=== PATIENT | male | born 1945 | race Caucasian/White ===

== ENCOUNTER → 2021-01-03 08:14 | Outpatient (BNVA) | payer MEDICARE, SELFPAY | PROVIDERS: PCP Internal Medicine; Visit Provider Urology | DX: N52.9 Male erectile dysfunction, unspecified (principal); N40.0 Benign prostatic hyperplasia without lower urinary tract symptoms | CPT/HCPCS: 51798; 99212 ==

== ENCOUNTER 2021-12-25 06:59 | Outpatient (REF) | payer MEDICARE, SELFPAY ==
[2021-12-25 08:36] LABS: Prostate Specific Antigen 0.57 ng/mL (<0.05-4.0)
== END 2021-12-25 07:00 | disposition home or self-care (01) ==
LOC: HO.LAB 06:59
PROVIDERS: Visit Provider Urology
DX: N32.0 Bladder-neck obstruction (principal); Z12.5 Encounter for screening for malignant neoplasm of prostate
CPT/HCPCS: 36415; 84153

== ENCOUNTER → 2022-01-01 08:16 | Outpatient (BNVA) | payer MEDICARE, SELFPAY | PROVIDERS: PCP Internal Medicine; Visit Provider Urology | DX: N40.0 Benign prostatic hyperplasia without lower urinary tract symptoms (principal); N52.9 Male erectile dysfunction, unspecified; Z79.899 Other long term (current) drug therapy | CPT/HCPCS: 51798; 99212 ==

== ENCOUNTER → 2022-04-03 11:08 | Outpatient (BNVA) | payer MEDICARE, SELFPAY | PROVIDERS: PCP Internal Medicine; Visit Provider Urology | DX: N52.9 Male erectile dysfunction, unspecified (principal); N40.0 Benign prostatic hyperplasia without lower urinary tract symptoms | CPT/HCPCS: Q3014 ==

== ENCOUNTER 2022-10-02 15:18 | Outpatient (AMB) | payer MEDICARE, SELFPAY ==
--- NOTE | 2022-10-02 15:19 | MHC.OFFVIS ---
Intake Intake Visit Reasons: 3m follow up Intake Note: Patient is present for Telephone Urology Med: sildenafil, tadalafil Antibiotic Allergy: none Blood Thinner: None Allergies No Known Allergies [No Known Allergies*] Allergy (Verified 04/03/22 11:11) Medication List - Last Reconciled 10/02/22 by Charlie Martinez MD atorvastatin 80 mg PO DAILY ipratropium bromide intranasal sildenafil 100 mg PO ONCE PRN 30 days tadalafil 10 mg PO DAILY 90 days HPI HPI Comments History of Present Illness Details Dewayne Lee is a very pleasant male. He is a patient of Dr Hsu. He is seen for the following urologic conditions. - lower urinary tract symptoms - erectile dysfunction Telemedicine Evaluation 15 min Consultation [employer] Video attempted Had groin strain which had pain has not had opportunity for medications will follow-up in 6 months Erectile dysfunction Response oral medications Current medication includes daily tadalafil with on demand sildenafil - Tadalafil 10mg with 100mg on demand Prior medications include on demand sildenafil up to 200 mg Lower Urinary Tract Symptoms:? Doing well with bladder emptying on alpha-fannie ?Is using sildenafil up to 200 mg as needed ?Emptying is stable ?Review in 12 months. ? Current visit is for?further evaluation of, lower urinary tract symptoms, predominate irritative symptoms.? Current treatment includes?observation, fluid restriction.? Prior treatments include?12/24 alpha fannie, terazosin - had dizziness - switched ?06/25 finasteride - minimal difference.? Prostate Symptom Score?12/24 Severe (20+), Bother 4 ?06/25 , Moderate (9-19), Bother 3 ?11/25 , Mild (0-8), Bother 2.? Symptoms include?12/24 incomplete emptying, frequency, urgency, weak stream, straining, nocturia (>2), and are progressing ?06/25 , frequency, urgency, weak stream, nocturia (>2), and are progressing ?11/26 , frequency, intermittency, weak stream, and are stable.? Results from testing include? cystoscopy ?no abnormality seen 07/25 - normal prostate, minimal trabeculation ? renal/bladder us ?Yes ? date ?12/25/2016 ? PVR ?25 ? prostate size ?50 ? Prior Prostate Score?unknown.? PSA?06/25 0.4, 12/28 0.6, 12/29 0.6 ? Prostate volume?30-50gm.? Treatment plan?continue with current medications PFSH Medical History Allergic rhinitis Aneurysm Bladder outlet obstruction BPH (benign prostatic hyperplasia) COPD (chronic obstructive pulmonary disease) Erectile dysfunction Nocturia OA (osteoarthritis) Right inguinal hernia Urinary urgency Weak urinary stream Surgical History H/O arthroscopy of knee History of foot surgery History of hernia repair History of surgery Family History Mother Cancer Social History Patient Tobacco Use Status: Former Tobacco user Review of Systems Const All systems reviewed & are unremarkable except as noted in HPI and below Reports no additional complaints Resp Reports no additional complaints GI Reports no additional complaints Reports as per HPI Musc Reports no additional complaints Physical Exam Telemedicine evaluation Appropriate responses Regular breathing rate and rhythm HEENT Head: Yes normal to inspection Ears: hearing grossly normal bilaterally Eyes General: appearance normal, both eyes and all related structures Neck Neck: Yes normal visual inspection Chest Chest palpation & inspection: normal inspection of the chest Resp Effort & Inspection: normal respiratory effort and able to speak in complete sentences Assessment & Plan Assessment & Plan (1) Erectile dysfunction: Code(s): N52.9 - Male erectile dysfunction, unspecified (2) BPH (benign prostatic hyperplasia): Code(s): N40.0 - Benign prostatic hyperplasia without lower urinary tract symptoms Plan 6m Medications: Refilled sildenafil 100 mg PO ONCE PRN 30 tabs 1RF sexual activity 30 days N52.9 - Male erectile dysfunction, unspecified tadalafil BIN PCN Group [facility] DRDavid [id number] 10 mg PO DAILY 90 tabs 1RF sexual activity 90 days N52.01 - Erectile dysfunction due to arterial insufficiency Patient Instructions: Imaging studies, laboratory and physical exam results were discussed and reviewed in detail. No major barriers to patient understanding were identified. An opportunity to ask questions regarding the treatment plan was provided. All questions were answered. The patient expressed understanding and agreement with the above treatment plan. The patient is aware they should contact our office by phone for worsening of their current condition or the appearance of new urologic symptoms. Compliance is encouraged with any medications and followup testing that is ordered. It is a privilege to participate in the urologic care of your patient. If you have any questions or concerns regarding treatment for the above conditions, or other urologic issues, please do not hesitate to contact me. The office telephone contact is [phone]. This note is constructed using voice recognition software. While every effort has been made to ensure accuracy tank car mechanic errors may have been included. Yours sincerely, Dr Charlie Martinez MD, [facility] - Urology Providers of Expert, Compassionate Care for the Genitourinary System Telehealth Telehealth Location of provider rendering services: practice address Location of patient: address on file Patient Identification confirmed using: Name, : Yes Telehealth method: video Patient verbally consented to treatment: Yes Patient verbally consented to billing insurance company: Yes Patient informed of any privacy concerns related to visit: Yes Coding Level of Care Code Tele Est Pt Level 3 (01471) Diagnoses Erectile dysfunction N52.9 BPH (benign prostatic hyperplasia) N40.0
--- OUTSIDE RECORDS SUMMARY | 2022-10-02 15:20 | XMS_ITS | Continuity of Care Document ---
Author Name Unknown Organization [facility] Address [address] [place] [address]- Care Team Providers Care Financial Quantitative Analyst Name Role Phone Luis DanielShravan edwards DO Primary Care Physician [phone] [id number] Date(s): 07/19/22 - 07/26/22 [facility] [address] [place], [place] [address] Attending Physician: Saniya Luna NP Admitting Physician: Saniya Luna NP Referring Physician: Remington Leal MD Allergies, Adverse Reactions, Alerts No Known Allergies Medications aspirin 81 mg oral tablet 2 tablet = 162 mg, By Mouth, Daily, 0 Refills, Maintenance, 07/18/17 10:43:16 EDT Start Date: 07/18/17 Status: Ordered atorvastatin 80 mg oral tablet 1 tablet = 80 mg, By Mouth, Daily, 0 Refills, Maintenance Start Date: 06/26/17 Status: Ordered Naprosyn 250 mg oral tablet 250 mg, By Mouth, 2 times a day, PRN, Refills 0, Maintenance, as needed for arthritis, 06/27/22 15:50:00 EDT, Partial fill upon patient request if the prescription is for a schedule II opioid drug. Start Date: 06/27/22 Status: Ordered Sildenafil = 10 mg, By Mouth, Daily, PRN erectile dysfunction, 0 Refills, Maintenance, 06/27/22 15:41:00 EDT, Partial fill upon patient request if the prescription is for a schedule II opioid drug. Start Date: 06/27/22 Status: Ordered Problem List Condition Confirmation Course Effective Dates Status H ealth Status Informant AAA (abdominal aortic aneurysm) Confirmed Active BPH (benign prostatic hyperplasia) Confirmed Active Obesity (BMI 33 as of 08/08/2017) Confirmed Active Chronic obstructive pulmonary disease (COPD) Confirmed Active Ex-smoker, 1.5 ppd X50 years, quit 2012 Confirmed Active Ongoing Marijuana use, weekly Confirmed Active Alcohol use, 12 pack 3 X week Confirmed Active Murmur Confirmed Active Status post CVA, residual mild left hemiparesis weakness Confirmed Active HLD (hyperlipidemia) Confirmed Active HTN (hypertension) Confirmed Active Mitral regurgitation Confirmed Active Obese class I Confirmed Active OA (osteoarthritis), right hip and knee Confirmed Active PVD (peripheral vascular disease) Confirmed Active Vital Signs Most recent to oldest [Reference Range]: 1 Height 193 cm (07/19/22 3:52 PM) Weight 113.9 kg (07/19/22 3:52 PM) Oxygen Saturation [94-100 %] 94 % (07/19/22 3:52 PM) Pulse Rate [55-90 bpm] 94 bpm *H* (07/19/22 3:52 PM) Body Mass Index [18.5-24.99 kg/m2] 30.58 kg/m2 *>HHI* (07/19/22 3:52 PM) Blood Pressure [90-138/55-84 mm Hg] 140/ 80mm Hg *H* (07/19/22 3:52 PM) Mode of Delivery (Oxygen) Room air (07/19/22 3:52 PM) Blood pressure sites Arm, right (07/19/22 3:52 PM) Social History Social History Type Response Smoking Status Never (less than 100 in lifetime) entered on: 06/08/21 Sex Note * Hiral Marx: SIGN, VERIFY, PERFORM Event Display: Patient Education/Instruction Authored Date: [id number] [facility] *[facility] [address] Clinical Summary Name JULIOCESAR PINA Age 77 Years 1945 PCP Shravan Petersen DO PCP Visit Date 07/19/2022 15:46:00 Additional Instructions: Scheduled Appointments?? Future Appointments ?*BVS??Lab[address] ?Phone:??--?Fax:??-- ?Appt. Date:??09/17/2022?10:00 AM ?Scheduled Provider:??Ultrasound Room 2 [facility] ?*BVS[address],??[place],??[address] ?Phone:??--?Fax:??-- ?Appt. Date:??09/19/2022?9:20 AM ?Scheduled Provider:??Remington Leal MD Follow-Up Instructions ?? Diagnosis Medications: Please continue your medications until treatment is completed or stopped by your provider. Discuss any questions related to medications with your provider. Medications to Continue with No Changes These medications were not printed or sent to your pharmacy Aspirin (aspirin 81 mg oral tablet) 2 tab(s) Oral Daily. Next Dose: Atorvastatin (atorvastatin 80 mg oral tablet) 1 tab(s) Oral Daily. Next Dose: Naproxen (Naprosyn 250 mg oral tablet) 250 Milligram Oral twice a day as needed as needed for arthritis. Next Dose: Sildenafil 10 Milligram Oral Daily as needed erectile dysfunction. Next Dose: Allergy Info:?? No Known Medication Allergies; NKA Medications Given This Visit Future Orders ?No future orders Vital Signs Height 193 cm Weight 113.9 kg BMI 30.58 kg/m2 Blood Pressure 140 mm Hg/80 mm Hg Temperature Pulse Rate 94 bpm Respiratory Rate 02 Sat Mode of Delivery 94 %/Room air You can now view a summary of your hospital visit from the comfort of your home through a free online portal called [employer]. [employer] is a website that allows you to securely view your medical information including discharge summary, medications and follow-up visits. ??You can alsosend a secure electronic message to your doctor???s office to request appointments, renew medications or just ask a question. You can enroll at [email or web address] or register during your next office visit. Disclaimer:?? The information provided is of a general nature and is intended to be used in conjunction with the recommendations and advice of your health care practitioner. ??Every effort has been made to ensure that the information provided is accurate and complete at the time it is provided to you however, as your needs change, or, as new ??information becomes available, different or additional instructions may be required. If you have questions, please consult with your primary care provider or pharmacist, as appropriate. ??This information is not intended to serve as substitution for assessment and evaluation by a qualified health care provider. If you do not have a primary care provider, you may find a [facility] provider by calling [facility] at [phone]. For information about the plan of care including goals and instructions for your diagnosis, please see the patient education orders section of this document. Patient Education Materials?? The content of this educational material or handout may have been modified, supplemented, or adapted from its original content and format to support your individualized medical care. Patient Care team information Care Team Personnel Name: Shravan Petersen DO Position: Reference Physician Member Role: PCP Address: Address: [facility] [place] [address]- Name: Ruthie Valdez RN Position: S RN Member Role: Primary Care Nurse Name: Joanna Byrd RN Position: Leigh ANGELO RN Member Role: Primary Care Nurse Name: Jag Edwards RN Position: S RN Supv Member Role: Primary Care Nurse Name: Aneta Silva RN Position: S RN Member Role: Primary Care Nurse Name: Kimberley Brown RN Position: S RN Member Role: Primary Care Nurse Care Team Related Persons Name: AL MILLER Address: [address] [place] [address]
--- OUTSIDE RECORDS SUMMARY | 2022-10-02 15:20 | XMS_ITS | Continuity of Care Document ---
Author Name Unknown Organization [facility] Address [address] [place] [address]- Care Team Providers Care Concreting Supervisor Name Role Phone Shravan Petersen DO Primary Care Physician Encounter [facility] Date(s): 04/10/22 - 04/17/22 [facility] [address] [place] [address]- Attending Physician: Remington Leal MD Admitting Physician: Remington Leal MD Allergies, Adverse Reactions, Alerts No Known Allergies Medications ABD Pads (6X9) See Instructions, # 1 kit, Refills 1, Tot. Refills 1, Maintenance, for dressing changes every otherday. Apply zinc to periwound area, apply silver topical to wound. Cover with Gauze, ABD pad, and secure with tape., 06/12/21 10:19:00 EDT, Supply, 190,... Start Date: 06/12/21 Status: Ordered acetaminophen 325 mg oral tablet 650 mg, By Mouth, Every 4 hours, PRN, Temperature Greater than 100.5, Refills 0, Maintenance, Pain , Mild, 06/12/21 8:40:00 EDT, Partial fill upon patient request if the prescription is for a schedule II opioid drug. Start Date: 06/12/21 Status: Ordered aspirin 81 mg oral tablet 2 tablet = 162 mg, By Mouth, Daily, 0 Refills, Maintenance, 07/18/17 10:43:16 EDT Start Date: 07/18/17 Status: Ordered atorvastatin 80 mg oral tablet 1 tablet = 80 mg, By Mouth, Daily, 0 Refills, Maintenance Start Date: 06/26/17 Status: Ordered Dakins Quarter Strength 0.125% topical solution See Instructions, apply moistened dakins gauze to left hip for 10mins everyother day as directed, #400 mL, 4 Refills, Maintenance, 05/10/21 9:06:00 EST, [facility]/pharmacy #[id number], Partial fill upon patientrequest if the prescription is for a schedule II op... Start Date: 05/10/21 Status: Ordered Gauze Pad (4 X 4) See Instructions, # 1 kit, Maintenance, for dressing changes every other day. Apply zinc to periwound area, apply silver topical to wound. Cover with Gauze, ABD pad, and secure with tape., 06/12/21 10:19:00 EDT, Supply, 190, cm, 06/12/21 5:14:00 EDT,... Start Date: 06/12/21 Status: Ordered Gloves See Instructions, # 1 each, Maintenance, for dressing changes every other day. Apply zinc to periwound area, apply silver topical to wound. Cover with Gauze, ABD pad, and secure with tape., 06/12/21 10:19:00 EDT, Supply, 190, cm, 06/12/21 5:14:00 EDT,... Start Date: 06/12/21 Status: Ordered Nasacort AQ 2 sprays, Daily, 0 Refills, Maintenance, 10/17/17 8:53:30 EDT Start Date: 10/17/17 Status: Ordered silver topical dressing See Instructions, for dressing changes every other day. Apply zinc to periwound area, apply silver topical to wound. Cover with Gauze, secure with tape., # 15 each, 0 Refills, Maintenance, 06/12/21 10:17:00 EDT, [facility], Partial fill up... Start Date: 06/12/21 Status: Ordered Tape (1 -Paper) See Instructions, # 1 each, Maintenance, for dressing changes every other day. Apply zinc to periwound area, apply silver topical to wound. Cover with Gauze, ABD pad, and secure with tape., 06/12/21 10:19:00 EDT, Supply, 190, cm, 06/12/21 5:14:00 EDT,... Start Date: 06/12/21 Status: Ordered Problem List Condition Confirmation Course [...] Active PVD (peripheral vascular disease) Confirmed Active Social History Social History Type Response Smoking Status Never (less than 100 in lifetime) entered on: 06/08/21 Sex Patient Care team information Care Team Personnel Name: Shravan Petersen DO Position: Reference Physician Member Role: PCP Address: Address: [address] [place] [address]- Name: Ruthie Valdez RN Position: S RN Member Role: Primary Care Nurse Name: Jag Edwards RN Position: S RN Supv Member Role: Primary Care Nurse Name: Joanna Han RN Position: S RN Member Role: Primary Care Nurse Name: Aneta Silva RN Position: S RN Member Role: Primary Care Nurse Name: Kimberley Brown RN Position: S RN Member Role: Primary Care Nurse Care Team Related Persons Name: ANGELA AL Address: home [address] [place] [address]
--- OUTSIDE RECORDS SUMMARY | 2022-10-02 15:20 | XMS_ITS | Continuity of Care Document ---
Author Name Unknown Organization [facility] ter Address [address] [place] [address]- Care Team Providers Care Highway Maintenance Worker Name Role Phone Shravan Petersen DO Primary Care Physician [phone] Encounter [facility] Date(s): 06/06/22 - 07/17/[address] [address] Attending Physician: Remington Leal MD Referring Physician: Remington Leal MD Allergies, Adverse [...] Reference Physician Member Role: PCP Address: Address: [address] [place] [address]- Name: Ruthie Valdez RN Position: S RN Member Role: Primary Care Nurse Name: Joanna Byrd RN Position: [facility] RN Member Role: Primary Care Nurse Name: Jag Edwards RN Position: S RN Supv Member Role: Primary Care Nurse Name: Aneta Silva RN Position: S RN Member Role: Primary Care Nurse Name: Kimberley Brown RN Position: S RN Member Role: Primary Care Nurse Care Team Related Persons Name: AL MILLER Address: home [address] [place] [address]
--- OUTSIDE RECORDS SUMMARY | 2022-10-02 15:20 | XMS_ITS | Continuity of Care Document ---
Author Name Unknown Organization [facility] Address [address] [place] [address]- Care Team Providers Care Rags Laborer Name Role Phone Shravan Petersen DO Primary Care Physician Encounter [facility] AC[facility] R [id number] Date(s): 09/19/22 - 09/26/22 [facility] [address] [place] [address]- Attending Physician: Not on Staff, Attending MD Admitting Physician: Renetta Dove NP Allergies, Adverse Reactions, Alerts No Known Allergies [...] oldest [Reference Range]: 1 Height 193 cm (09/19/22 4:04 PM) Oxygen Saturation [94-100 %] 97 % (09/19/22 4:04 PM) Pulse Rate [55-90 bpm] 49 bpm *L* (09/19/22 4:04 PM) Blood Pressure [90-138/55-84 mm Hg] 130/ 80mm Hg (09/19/22 4:04 PM) Blood pressure sites Arm, left (09/19/22 4:04 PM) Social History Social History Type Response Smoking Status Never (less than 100 in lifetime) entered on: 06/08/21 Sex Note * Larisa Douglas: PERFORM, SIGN, VERIFY Event Display: Patient Education/Instruction Authored Date: [id number] [facility] *BVS [address] Clinical Summary Name JULIOCESAR PINA Age 77 Years 1945 PCP Shravan Petersen DO PCP Visit Date 09/19/2022 15:43:00 Additional Instructions: Scheduled Appointments?? Future Appointments ?No Future Appointments Scheduled Follow-Up Instructions ?? With: Address: When: Larisa Del Real NP 09/19/2022 12:00 AM Comments: ([facility] pt) CTA abdomen and pelvis in 6 months Diagnosis Medications: Please continue your medications until [...] orders Vital Signs Height 193 cm Weight BMI Blood Pressure 130 mm Hg/80 mm Hg Temperature Pulse Rate 49 bpm Respiratory Rate 02 Sat Mode of Delivery 97 %/ You can now view a summary of your hospital visit from the comfort of your home through a free online portal called [employer]. [employer] is a website that allows you to securely view your medical information including discharge summary, medications and follow-up visits. ??You can alsosend a secure electronic message to your doctor???s office to request appointments, renew medications or just ask a question. You can enroll at [email or web address] or register during your next office visit. [...] primary care provider, you may find a [facility] provider by calling [facility] at [phone]. For information about the plan of care [...] Reference Physician Member Role: PCP Address: Address: [address] [place] [address]- Name: Ruthie Valdez RN Position: S RN Member Role: Primary Care Nurse Name: Joanna Byrd RN Position: [facility] SN RN Member Role: Primary Care Nurse Name: Jag Edwards RN Position: S RN Supv Member Role: Primary Care Nurse Name: Aneta Silva RN Position: S RN Member Role: Primary Care Nurse Name: Kimberley Brown RN Position: S RN Member Role: Primary Care Nurse Care Team Related Persons Name: AL MILLER Address: home [address] [place] [address]
--- OUTSIDE RECORDS SUMMARY | 2022-10-02 15:20 | XMS_ITS | Continuity of Care Document ---
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 Role Phone Shravan Petersen DO Primary Care Physician Encounter [facility] Date(s): 05/24/22 - 05/31/22 [facility] [address] [place] [address]- Attending Physician: Remington Leal MD Admitting Physician: [...] mL, 4 Refills, Maintenance, 05/10/21 9:06:00 EST, [facility]/pharmacy #[id number], Partial fill upon patientrequest if the prescription [...] recent to oldest [Reference Range]: 1 Height 190 cm (05/24/22 8:25 AM) Weight 120.4 kg (05/24/22 8:25 AM) Oxygen Saturation [94-100 %] 95 % (05/24/22 8:25 AM) Pulse Rate [55-90 bpm] 52 bpm *L* (05/24/22 8:25 AM) Body Mass Index [18.5-24.99 kg/m2] 33.35 kg/m2 *>HHI* (05/24/22 8:25 AM) Blood Pressure [90-138/55-84 mm Hg] 120/ 64mm Hg (05/24/22 8:25 AM) Mode of Delivery (Oxygen) Room air (05/24/22 8:25 AM) Blood pressure sites Arm, left (05/24/22 8:25 AM) Weight Obtained Via Patient/family state d (05/24/22 8:25 AM) Social History Social History Type Response Smoking Status Never (less than 100 in lifetime) entered on: 06/08/21 Sex Note * Raven Mcclain: PERFORM, SIGN, VERIFY Event Display: Patient Education/Instruction Authored Date: [id number] [facility] *[facility] [address] Clinical Summary Name JULIOCESAR PINA Age 76 Years 1945 PCP Shravan Petersen DO PCP Visit Date 05/24/2022 08:20:00 Additional Instructions: Scheduled Appointments?? Future Appointments ?No Future Appointments Scheduled Follow-Up Instructions ?? Diagnosis Medications: Please continue your medications until treatment is completed or stopped by your provider. Discuss any questions related to medications with your provider. Medications to Continue with No Changes These medications were not printed or sent to your pharmacy Acetaminophen (acetaminophen 325 mg oral tablet) 650 Milligram Oral every 4 hours as needed Pain , Mild. Temperature Greater than 100.5. Next Dose: Aspirin (aspirin 81 mg oral tablet) 2 tab(s) Oral Daily. Next Dose: Atorvastatin (atorvastatin 80 mg oral tablet) 1 tab(s) Oral Daily. Next Dose: Durable Medical Equipment (ABD Pads (6X9)) for dressing changes every other day. Apply zinc to periwound area, apply silver topical to wound. Cover with Gauze, ABD pad, and secure with tape.. Refills: 1. Next Dose: Durable Medical Equipment (Gauze Pad (4 X 4)) for dressing changes every other day. Apply zinc to periwound area, apply silver topical to wound. Cover with Gauze, ABD pad, and secure with tape.. Refills: 0. Next Dose: Durable Medical Equipment (Gloves) for dressing changes every other day. Apply zinc to periwound area, apply silver topical to wound. Cover with Gauze, ABD pad, and secure with tape.. Refills: 0. Next Dose: Durable Medical Equipment (Tape (1 -Paper)) for dressing changes every other day. Apply zinc to periwound area, apply silver topical to wound. Cover with Gauze, ABD pad, and secure with tape.. Refills: 0. Next Dose: silver topical (silver topical dressing) for dressing changes every other day. Apply zinc to periwound area, apply silver topical to wound. Cover with Gauze, secure with tape.. Refills: 0. Next Dose: Sodium Hypochlorite Topical (Dakins Quarter Strength 0.125% topical solution) apply moistened dakins gauze to left hip for 10mins everyother day as directed. Refills: 4. Next Dose: Triamcinolone Nasal (Nasacort AQ) 2 spray(s) Daily. Next Dose: Allergy Info:?? No Known Medication Allergies; NKA Medications Given This Visit Future Orders ?No future orders Vital Signs Height 190 cm Weight 120.4 kg BMI 33.35 kg/m2 Blood Pressure 120 mm Hg/64 mm Hg Temperature Pulse Rate 52 bpm Respiratory Rate 02 Sat Mode of Delivery 95 %/Room air You can now view a summary of your hospital visit from the comfort of your home through a free online portal called [employer]. [employer] is a website that allows you to securely view your medical information including discharge summary, medications and follow-up visits. ??You can alsosend a secure electronic message to your doctor???s office to request appointments, renew medications or just ask a question. You can enroll at [email or web address] or register during your next office visit. [...] primary care provider, you may find a [facility] provider by calling [facility] [employer] [facility] at [phone]. For information about the plan of care [...] Reference Physician Member Role: PCP Address: Address: [address] [place] [address]- Name: Ruthie Valdez RN Position: S RN Member Role: Primary Care Nurse Name: Jag Edwards RN Position: S RN Supv Member Role: Primary Care Nurse Name: Joanna Han RN Position: S RN Member Role: Primary Care Nurse Name: Aneta Silva RN Position: S RN Member Role: Primary Care Nurse Name: Kimberley Brown RN Position: [facility] RN Member Role: Primary Care Nurse Care Team Related Persons Name: GIANCARLOAL SANTANA Address: home [address] [place] [address]
--- OUTSIDE RECORDS SUMMARY | 2022-10-02 15:20 | XMS_ITS | Continuity of Care Document ---
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 Role Phone Shravan Petersen DO Primary Care Physician Encounter [facility] Date(s): 06/05/22 - 07/05/22 [facility] [address] [place] [address]- Allergies, Adverse Reactions, Alerts No Known Allergies [...] Condition Confirmation Course Effective Dates Status H ealt Status Informant AAA (abdominal aortic aneurysm) Confirmed [...] Reference Physician Member Role: PCP Address: Address: [address] [place] [address]- Name: Ruthie Valdez RN Position: S RN Member Role: Primary Care Nurse Name: Joanna Byrd RN Position: [facility] RN Member Role: Primary Care Nurse Name: Jag Edwards RN Position: [facility] RN Supv Member Role: Primary Care Nurse Name: Aneta Silva RN Position: S RN Member Role: Primary Care Nurse Name: Kimberley Brown RN Position: S RN Member Role: Primary Care Nurse Care Team Related Persons Name: AL MILLER Address: home [address] [place] [address]
--- OUTSIDE RECORDS SUMMARY | 2022-10-02 15:20 | XMS_ITS | Continuity of Care Document ---
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 Name Role Phone Shravan Petersen DO Primary Care Physician Encounter [facility] Date(s): 05/02/22 - 06/01/22 [facility] [address] [place] [address] Attending Physician: Alistair Carvajal Admitting Physician: Alistair Carvajal Referring Physician: AdmtrAlistair Allergies, Adverse Reactions, Alerts No Known Allergies [...] mL, 4 Refills, Maintenance, 05/10/21 9:06:00 EST, [facility]/pharmacy #[id number], Partial fill upon patientrequest if the prescription [...] Reference Physician Member Role: PCP Address: Address: [address] [place] [address]- Name: Ruthie Valdez RN Position: S RN [...] Care Nurse Care Team Related Persons Name: MATI MILLERA Address: home [address] [place] [address]
--- OUTSIDE RECORDS SUMMARY | 2022-10-02 15:20 | XMS_ITS | Continuity of Care Document ---
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 Name Role Phone Shravan Petersen DO Primary Care Physician Encounter [facility] Date(s): 07/01/22 - 07/02/[address] [address] Discharge Disposition: A-D/C Home Attending Physician: Remington Dorman MD Admitting Physician: Remington Dorman MD Referring Physician: Remington Dorman MD Allergies, Adverse Reactions, Alerts No Known [...] Most recent to oldest [Reference Range]: 1 2 3 Height 193 cm (07/02/22 11:23 AM) 193 cm (07/02/22 8:04 AM) 193 cm (07/02/22 3:45 AM) Weight 113.9 kg (07/01/22 3:24 PM) 124 kg (07/01/22 9:29 AM) Oxygen Saturation [94-100 %] 95 % (07/02/22 11:23 AM) 94 % (07/02/22 8:04 AM) 93 % *L* (07/02/22 3:45 AM) Pulse Rate [55-90 bpm] 106 bpm *H* (07/02/22 11:23 AM) 61 bpm (07/02/22 8:04 AM) 62 bpm (07/02/22 3:45 AM) Body Mass Index [18.5-24.99 kg/m2] 30.58 kg/m2 *>HHI* (07/01/22 3:24 PM) 33.29 kg/m2 *>HHI* (07/01/22 9:29 AM) Blood Pressure [90-138/55-84 mm Hg] 117/65mm Hg (07/02/22 11:23 AM) 141/78mm Hg *H* (07/02/22 8:04 AM) 123/62mm Hg (07/02/22 3:45 AM) Respiratory Rate [16-30 br/min] 18 br/min (07/02/22 11:23 AM) 18 br/min (07/02/22 8:04 AM) 17 br/min (07/02/22 3:45 AM) Temperature [96.8-100.4 DegF] 97.4 DegF (07/02/22 11:23 AM) 97.7 DegF (07/02/22 8:04 AM) 97.7 DegF (07/02/22 3:45 AM) Liters per Minute 6 L/min (07/01/22 12:30 PM) Mode of Delivery (Oxygen) Room air (07/02/22 11:23 AM) Room air (07/02/22 8:04 AM) Room air (07/02/22 3:45 AM) Blood pressure sites Arm, left (07/02/22 11:23 AM) Arm, left (07/02/22 8:04 AM) Arm, left (07/02/22 3:45 AM) Temperature Route Oral (07/02/22 11:23 AM) Oral (07/02/22 8:04 AM) Oral (07/02/22 3:45 AM) Weight Obtained Via Standing scale (07/01/22 9:29 AM) Social History Social History Type Response Smoking Status Never (less than 100 in lifetime) entered on: 06/08/21 Sex Note * Event Display: Adult Preadmission Health Questionnaire Authored Date: * Event Display: Cardiac Rhythm Strips Authored Date: * Elodia Oneil RN: PERFORM Event Display: Discharge/Transfer Note Hospital Authored Date: Nursing Discharge Note Entered On: 07/02/2022 12:59 EDT Performed On: 07/02/2022 12:59 EDT by Elodia Oneil RN Nursing Discharge Note 2 Discharge Time : 07/02/2022 12:57 EDT Discharge Level of Care at Discharge : Home/Detention/Foster Care Patient Left Unit Via : Wheelchair Patient Accompanied Off Unit with : Responsible adult DC Instructions Provided & Signed by Pt : Yes Patient Understands D/C Instructions : Yes Patient Instructions Discharge Signed : Yes Did Pt have Specialty Bed or Wound Vac : No Elodia Oneil RN - 07/02/2022 12:59 EDT * Remington Dorman MD: DENISE Bobo MD, Bro Sheehan: PERFORM, DENISE Bobo MD, Bro Sheehan: SIGN, VERIFY Jihan CHILEL, Bro Sheehan: VERIFY Event Display: Discharge/Transfer Note Hospital Authored Date: Patient: JULIOCESAR PINA Age: 76 years Sex: Male : 1945 Associated Diagnoses: PVD (peripheral vascular disease) Author: Jiahn CHILEL, Bro Sheehan Discharge Information Admission Date: 07/01/2022 Discharge Date 07/02/2022 Principal Discharge Diagnosis PVD (peripheral vascular disease): Present on admission. Medications MEDICATION LIST (Selected) Inpatient Medications Ordered Acetaminophen Tablet: 650 mg, Tablet, By Mouth, Every 4 hours, PRN for Pain , Mild, Routine, 07/01/22 12:56:00 EDT Bisacodyl Supp: 10 mg, Suppository, Rectally, Daily, PRN for Constipation, Routine, 07/01/22 12:56:00 EDT Dilaudid Inj: 0.2 mg, Injection, IV Push Slowly, Every 6 hours, PRN for Pain , Severe, please hold for BP less than 90 and RR less than 13, Routine, 07/01/22 15:30:00 EDT Docusate Sodium Capsule: 100 mg, Capsule, By Mouth, 2 times a day, Routine, 07/01/22 12:56:00 EDT Heparin Inj: 5,000 units, Injection, Subcutaneous Injection, 3 times a day, (DVT Prophylaxis), Routine, 07/01/22 14:00:00 EDT LR 1,000 mL: 1,000 mL, Infusion, IV Infusion, 1,000 mL, 125 mL/hr, Infuse over 8 hr, Continue untilD/C'd Unless duration specified, Routine, 07/01/22 11:09:00 EDT, 2.49, m2 Naprosyn 250 mg oral tablet: 250 mg, Tablet, By Mouth, 2 times a day, PRN for Arthritis, Routine, 07/01/22 12:58:00 EDT aspirin 81 mg oral tablet, chewable: 162 mg, Chew Tablet, By Mouth, Daily, Routine, 07/01/22 12:57:00 EDT atorvastatin 80 mg oral tablet: 80 mg, Tablet, By Mouth, Daily, Routine, 07/01/22 12:57:00 EDT nalOXONE Inj: 0.04 mg, Injection, IV Push, Every 5 minutes, Dilute in 10cc NS, PRN for Other, Respiratory Rate less than 8 or for somnolence/excessive sedation. Repeat until Respiratory Rate is greater than 15 and patient is more alert., Routine, 07/01/22 11:09:00 EDT... oxyCODONE 5 mg oral tablet: 5 mg, Tablet, By Mouth, Every 6 hours, PRN for Pain , Severe, Routine, 07/01/22 15:29:00 EDT Documented Medications Documented Naprosyn 250 mg oral tablet: 250 mg, By Mouth, 2 times a day, PRN, Refills 0, Maintenance, as needed for arthritis, 06/27/22 15:50:00 EDT, Partial fill upon patient request if the prescription is fora schedule II opioid drug. Sildenafil: = 10 mg, By Mouth, Daily, PRN erectile dysfunction, 0 Refills, Maintenance, 06/27/22 15:41:00 EDT, Partial fill upon patient request if the prescription is for a schedule II opioid drug. aspirin 81 mg oral tablet: 2 tablet = 162 mg, By Mouth, Daily, 0 Refills, Maintenance, 07/18/17 10:43:16 EDT atorvastatin 80 mg oral tablet: 1 tablet = 80 mg, By Mouth, Daily, 0 Refills, Maintenance. Aware of diagnosis: patient. Procedures Stenting of L internal iliac aneurysm (Elvis 07/01) . Discharge condition: good Compared to admission: improved Hospital Course Patient is a 76M with HLD, HTN, CVA, and he was a former smoker, he previously had a EVAR [place] [address] dorman, since then he was noted to have bilateral internal iliac aneurysms thus we performed stenting of L internal iliac aneurysm (MARGOTH 07/01). POD 1 he has been doing well the Frankel was removed he has since urinated and is ambulating he clinically is doing well. Patient to be discharged home as he remains hemodynamically stable, tolerating a diet and urinating without difficulty. Labs stable. Will Be DCed home. Physical exam General appearance: No apparent distress, appears stated age, well developed. Head: Normocephalic, atraumatic. Cardiac: RRR, no murmurs or gallops. Respiratory: Clear to auscultation bilaterally. Abdomen: Soft, nontender, nondistended. No guarding or rebound. No palpable mass. Skin: Bilateral groins stable, no bleeding or strikethrough. Extremities: Able to move all extremities without difficulty. Warm and well perfused. Neurologic status: Alert and oriented x 3. No focal deficits. Psych: Mood and affect normal. Vascular: Palpable femorals and pedal x6. Vital signs Temperature 97.7 (08:04) Systolic Blood Pressure 141 (08:04) Diastolic Blood Pressure 78 (08:04) Pulse 61 (08:04) SpO2 94 (08:04) Respiratory Rate 18 (08:04) Discharge Plan Discharge Disposition Discharge: home. Prescription Given this visit:No new prescriptions during this visit. Patient Instructions Given: ok to remove dressings and shower POD 2 Education Given:Peripheral Artery Disease (PAD) Patient Follow-up:Added Follow Up Time Frame Comments Remington Dorman MD 1 to 2 weeks Please contact the office following your discharge to set up a follow up appointment. * Clarice BARAKAT, Elodia: PERFORM Event Display: Patient Education/Instruction Authored Date: [id number] Inpatient Adult Discharge Instructions [address] [address] Name: JULIOCESAR PINA : 1945 Visit: 07/01/2022 12:33:00 Current Date: 07/02/2022 12:21 Account: [id number] Inpatient Adult Discharge Instructions We would like to thank you for allowing us to assist you with your healthcare needs. The following includes patient education materials and information regarding your injury/illness. Our entire staffstrives to provide an excellent experience for our patients and their families. PLEASE ENSURE YOU FOLLOW-UP PER THE INSTRUCTIONS BELOW! ?? YOUR OPINION IS IMPORTANT TO US! Please complete the survey you may receive by mail or email. Your feedback will be used to make improvements to the healthcare experiences of our patients and their families. Surveys are administered by [employer] ?? If further treatment with your primary care physician or another doctor is recommended, it is important for you to keep the appointment. Call your primary care physician or return to the Emergency Department immediately if your condition worsens, fails to improve, or new symptoms develop. If you need to find a doctor, you can call [facility] for a referral at [phone] or toll free at [phone] ([phone]) or log in to [email or web address].. ?? You can view and manage your care through the patient portal or by using a health care ragini of your choosing. [employer] is a website that allows you to securely view your medical information including your hospital discharge summary, office visit summaries, medications and follow-up visits. You can also request appointments, renew medications, and request access to your medical information using a health care ragini of your choosing, or just ask a question. You can enroll at [email or web address] or register during your next office visit. You have been discharged from [facility], Patient Care Unit: M6. If you have any questions regarding these instructions after you leave, please call us and we will be happy to assist you. [facility] Your Care Team Attending Physician Elvis CHILEL, Remington Discharging Providers Jihan CHILEL, Bro Sheehan Reason for Your Visit AAA EVAR 8:30AM ARR [id number] Your Diagnosis PVD (peripheral vascular disease) Tests Performed Below is a partial list of the tests performed during your hospitalization. You may have had other tests and procedures not included in this list. Please discuss all test results with your provider. CBC COVID-19 (2019 Novel Coronavirus) PCR Electrolytes SOURCE EXPOSURE PROFILE Type and Screen Primary Care Provider Shravan Petersen DO Advance Directive . Discharge Vitals Temperature: 97.4 DegF Height: 193 cm Pulse Rate:??106 bpm??High Weight: 113.9 kg Respiratory Rate: 18 br/min Body Mass Index:??30.58 kg/m2??Critical Systolic Blood Pressure: 117 mm Hg Body surface area: 2.47 Diastolic Blood Pressure: 65 mm Hg ?? Oxygen Saturation: 95 % ?? Studies Pending All tests and labs ordered during this hospital stay have been completed unless listed below. Please discuss all pending results with your provider listed above in these instructions. ?? BUN CBC w/ Differential Creatinine Electrolytes (Lytes) Ionized Calcium Magnesium Level Phosphorus Level RBCs for Surgery What to do next Instructions From Your Doctor Discharge Orders Scheduled Follow-Up Appointments Friday. 2022 4:00 PM EDT ?? With: Saniya Luna NP Where: [facility] [address] [address]- You Need to Schedule the Following Appointments Follow Up with??Remington Dorman MD When??Within 1 to 2 weeks Why: Please contact the office following your discharge to set up a follow up appointment. Where: [address] [place] [address], [address] [facility] [place] [address]- Discharge Medications JULIOCESAR PINA :1945 Visit Date:07/01/2022 Medications: Please continue your medications until treatment is completed or stopped by your provider. Medications not listed below should be discontinued. Discuss any questions related to medications with your provider. What How Much When Instructions Next Dose Unchanged Aspirin (aspirin 81 mg oral tablet) 2 tab(s) Oral Daily Tomorrow morning Unchanged Atorvastatin (atorvastatin 80 mg oral tablet) 1 tab(s) Oral Daily Tomorrow morning Unchanged Naproxen (Naprosyn 250 mg oral tablet) 250 Milligram Oral Twice a day as needed for as needed for arthritis as needed Unchanged Sildenafil 10 Milligram Oral Daily as needed for erectile dysfunction as needed Test Results Below is a partial list of the most recent Laboratory test results done prior to this discharge. You may have had other tests and procedures not included in this list. Please discuss all test resultswith your provider. RBC Available - RE (07/01/2022) RBC Unit ID - [id number] (07/01/2022) CBC (07/01/2022) ???WBC - 4.4 k/mm3???RBC - 4.51 m/mm3???Hgb - 14.4 Gm/dL???Hct - 42.3 %???MCV - 93.8 femtoliters???MCH - 31.9 pg???MCHC - 34.0 g/dL???Platelet Count - 113 k/mm3???RDW-SD - 44.9 femtoliters???MPV - 10.4 femtoliters???Nucleated RBC (Automated) - 0.0 #/100 WBC'S???Abs. NRBC - 0.0 k/mm3 COVID-19 (2019 Novel Coronavirus) PCR (07/01/2022) ???COVID-19 PCR Specimen Source - NASAL???COVID-19 PCR Result - NEGATIVE Electrolytes (07/01/2022) ???Sodium - 141 mmol/L???Potassium - 4.5 mmol/L???Chloride - 109 mmol/L???Bicarbonate Level - 22 mmol/L???Anion Gap - 10 SOURCE EXPOSURE PROFILE (07/01/2022) ???Hepatitis B Surface Antigen - NEGATIVE???Hepatitis C Ab - NEGATIVE???HIV 4th Generation Ab-Ag Result - NEGATIVE Type and Screen (07/01/2022) ???Blood Type - A Positive???Antibody Screen - Negative Allergies (NKA means No Known Allergies) NKA No Known Medication Allergies Problems Active Problems??(15) AAA (abdominal aortic aneurysm)?? Alcohol use, 12 pack 3 X week?? BPH (benign prostatic hyperplasia)?? Chronic obstructive pulmonary disease (COPD)?? Ex-smoker, 1.5 ppd X50 years, quit 2012?? HLD (hyperlipidemia)?? HTN (hypertension)?? Mitral regurgitation?? Murmur?? OA (osteoarthritis), right hip and knee?? Obese class I?? Obesity (BMI 33 as of 08/08/2017)?? Ongoing Marijuana use, weekly?? PVD (peripheral vascular disease)?? Status post CVA, residual mild left hemiparesis weakness?? Education Materials Below is the list of Educational Leaflet Providered with your Discharge Instructions. BVS-Special Instructions?? Peripheral Artery Disease (PAD)?? Valuables and Belongings I fully understand and agree that [facility] accepts no responsibility for all my personal property including clothing, toilet articles, radios, jewelry, dentures, hearing aids, rings, money, or any other property that is in my possession or is brought to me after admission. I understand certain valuables may be placed in a hospital safe for a short period of time. I understand that the hospital is not liable for loss or damage due to accident, fire, or other natural occurrence while said property is in the safe. I accept full responsibility for any personal property that I keep with me, and will not hold the hospital responsible in case of loss or disappearance. I acknowledge that i have been encouraged to send valuables and belongings home. ?? Review of Valuable and Belonging List: With patient Date for Pt to Sign Valuables/Belongings: 07/01/22 09:34:00 ?? Other Discharge Information ? Pulmonary Rehab Status?? Pulmonary Rehab Discharge Status?? Respiratory Rate: 18 br/min ? Common Emergency Awareness Tips IS IT A STROKE? Act FAST and Check for these signs: FACE Does the face look uneven? ARM Does one arm drift down? SPEECH Does their speech sound strange? TIME Call at any sign of stroke ?? Heart Attack Signs Chest discomfort: Most heart attacks involve discomfort in the center of the chest and lasts more than a few minutes, or goes away and comes back. It can feel like uncomfortable pressure, squeezing, fullness or pain. Discomfort in upper body: Symptoms can include pain or discomfort in one or both arms, back, neck, jaw or stomach. Shortness of breath: With or without discomfort. Other signs: Breaking out in a cold sweat, nausea, or lightheaded. Remember, MINUTES DO MATTER. If you experience any of these heart attack warning signs, call to get immediate medical attention! ?? Smoking can increase your chances of developing chronic health problems and can cause harmful effects to other family members in your house. If you smoke, you are strongly encouraged to quit. Please call [facility] at [phone] or [phone]) or log in to [email or web address] for referrals to smoking cessation programs. ?? 993 Suicide & Crisis Lifeline is available 30/09 if you or someone you know needs to find a reason to keep living. By calling 742 you'll be connected to a skilled, trained counselor at a crisis center in your area. INPATIENT DISCHARGE INSTRUCTIONS SIGNATURE PAGE JULIOCESAR PINA Location:[facility] Registration Date and Time:07/01/2022 12:33 EDT Primary Care Physician: Shravan Petersen DO, I JULIOCESAR PINA, have received the above patient education materials/instructions and have verbalized understanding. If ambulance or transport services are being used I further acknowledge being given a choice of service. ?? If you need to contact me, please call me at this number: . Patient/Personnel Consultant Name: Patient/Personnel Consultant Signature: Relationship to Patient: Witness Name/Signature: Date: * Elodia Oneil RN: PERFORM Event Display: Patient Education Leaflets Authored Date: [id number] BVS-Special Instructions ?? 60 Vascular Special Instructions ?? If you develop fever, chills, increased pain, nausea, vomiting, bleeding, or increased redness or pus around the wound please call the vascular surgery office at . Please take medications as prescribed and do not drive while on narcotic medications. ?? If you have any questions, please call the vascular surgery office at . ?? Please call your Primary Care Provider within 1 week for post hospital follow up and review of yourmedications. ? * Jihan CHILEL, Bro Sheehan: PERFORM Event Display: Patient Education Leaflets Authored Date: [id number] Peripheral Artery Disease (PAD) ?? [id number] Peripheral Artery Disease (PAD)?? Peripheral artery disease (PAD)??occurs when the arteries that carry blood to the arms and legs arenarrowed or blocked.??This is usually from a buildup of plaque. This is a fatty substance in the reeder of the arteries. PAD most often affects the arteries in the legs.??When these arteries are narrowed or blocked, lessblood gets to the legs. This can cause leg and foot pain. If severe enough, the lack of blood flow can lead to tissue (gangrene) and the loss of a toe, foot, or leg. Having PAD also makes it more likely that arteries in other body areas are blocked. For instance, arteries that carry blood to the heart or brain may be affected. This raises the chances of heart attack and stroke. Risk factors Certain things can make PAD more likely. They include: ??? Smoking ??? Diabetes ??? High blood pressure ??? Unhealthy cholesterol levels ??? Obesity ??? Inactive lifestyle ??? Older age ??? Family history of PAD ?? Symptoms Many people with PAD have no symptoms. If symptoms do occur, they can include: ??? Pain in the muscles of the calves, thighs, or hips that gets worse with activity and better with rest (intermittent claudication) ??? Achy, tired, or heavy feeling in the legs ??? Weakness, numbness, tingling, or loss of feeling in the legs ??? Changes in skin color of the legs ??? Sores on the legs and feet that heal slowly ??? Cold leg, feet, or toes ??? Pain the feet or toes even when lying down (rest pain) ?? Home care PAD is a lifelong (chronic) condition. Treatment is focused on managing your condition and loweringyour health risks. This may include doing the following: ??? If you smoke, quit.??This helps prevent further damage to your arteries and lowers your health risks. Ask your provider about medicines orproducts that can help you quit smoking.??Also consider joining a stop-smoking program??or support group. ??? Be more active. This helps you lose weight and manage problems such as high blood pressure and unhealthy cholesterol levels. Start a walking program if advised to by your provider. Your provider may also help you form a safe exercise program that is right for your needs. ??? Make healthy eating changes.??This includes eating less fat, salt, and sugar. ??? Take medicines for high blood pressure, unhealthy cholesterol levels, and diabetes as directed. ??? Have your blood pressure and cholesterol levels checked as often as directed. ??? If you have diabetes, try to keep your blood sugar well controlled.??Test your blood sugar as directed. ??? If you are overweight, talk with your provider about a weight-loss plan. ??? Watch for cuts, scrapes, or open sores on your feet. Poor blood flow to the feet may slow healing and increase the risk for infection from these problems.? Follow-up care Follow up with your healthcare provider as advised. If you had imaging tests such as ultrasound, they will be reviewed by a doctor. You will be told the results and any new findings that may affect your care. ?? When to seek medical advice?? Call your healthcare provider right away if any of these occur: ??? Sudden severe pain in the legs or feet ??? Sudden cold, paleness, or blue color in the legs or feet ??? Weakness or numbness in thelegs or feet that worsens ??? Any sore or wound in the legs or feet that won???t heal ??? Weak pulse in your legs or feet ??? Symptoms get worse or you have new symptoms ?? Know the signs of heart attack and stroke People with PAD are at high risk for heart attack and stroke. Knowing the signs of these problems can help you protect your health and get help when you need it. Call 911 right away if you have any of the following: ??? Chest discomfort, such as pain, aching, tightness, or pressure that lasts more than a few minutes, or that comes and goes ??? Pain or discomfort in the arms, back, shoulders, neck, or jaw ??? Shortness of breath ??? Sweating (often a cold, clammy sweat) ??? Nausea ??? Lightheadedness ??? Sudden numbness, drooping, or weakness of the face, arms, or legs, especially on one side ??? Sudden confusion or trouble speaking or understanding ??? Sudden trouble seeing in one or both eyes ??? Sudden trouble walking, dizziness, or loss of balance ??? Sudden, severe headache with no known cause ?? Last Reviewed Date: 2021 ?? [id number] [employer]. All rights reserved. This information is not intended as a substitute for professional medical care. Always follow your healthcare professional's instructions. ?? Hospital Progress note * Railway Patrol Officer Jake MATAMOROS: PERFORM, SIGN, VERIFY Event Display: Progress Note Hospital Authored Date: [id number] Patient: JULIOCESAR PINA Age: 76 years Sex: Male : 1945 Associated Diagnoses: None Author: Jake Mckenzie NP Subjective Denies chest pain, shortness of breath, nausea or vomiting. Pain controlled Objective Temperature 97.8 (15:24) Systolic Blood Pressure 166 (15:50) Diastolic Blood Pressure 74 (15:50) Pulse 71 (15:24) SpO2 100 (15:24) Respiratory Rate 18 (15:37) General appearance: No apparent distress, appears stated age, well developed. Head: Normocephalic, atraumatic. Cardiac: RRR, no murmurs or gallops. Respiratory: Clear to auscultation bilaterally. Abdomen: Soft, nontender, nondistended. No guarding or rebound. No palpable mass. Skin: Bilateral groins stable, no bleeding or strikethrough. Extremities: Able to move all extremities without difficulty. Warm and well perfused. Neurologic status: Alert and oriented x 3. No focal deficits. Psych: Mood and affect normal. Vascular: Palpable femorals and pedal x6. Assessment 76M POD0 s/p EVAR. Tolerated well. Plan - Advance diet as tolerated - Pain control as needed - Continue ASA/statin - SQH for DVT ppx - OOB as tolerated - Keep Frankel overnight Patient Care team information Care Team Personnel Name: Shravan Petersen DO Position: Reference Physician Member Role: PCP Address: Address: [address] [place] [address]- Name: Ruthie Valdez RN Position: S RN Member Role: Primary Care Nurse Name: Joanna Byrd RN Position: S RN Member Role: Primary Care Nurse Name: Jag Edwards RN Position: S RN Supv Member Role: Primary Care Nurse Name: Aneta Silva RN Position: S RN Member Role: Primary Care Nurse Name: Kimberley Brown RN Position: S RN Member Role: Primary Care Nurse Care Team Related Persons Name: AL MILLER Address: home [address] [place] [address]
--- OUTSIDE RECORDS SUMMARY | 2022-10-02 15:20 | XMS_ITS | Continuity of Care Document ---
Author Name Unknown Organization Wound Care Address [address] [place] [id number] Care Team Providers Care Email Marketing Assistant Name Role Phone Shravan Petersen DO Primary Care Physician Encounter [facility] [id number] Date(s): 03/12/22 - 04/13/22 [address] [address] [place] [id number] Attending Physician: Ramu Andrews MD Admitting Physician: Ramu Andrews MD Referring Physician: Shravan Petersen DO Allergies, Adverse Reactions, Alerts No Known Allergies [...] mL, 4 Refills, Maintenance, 05/10/21 9:06:00 EST, [facility]/pharmacy #[id number], Partial fill upon patientrequest if the prescription [...] Physician Member Role: PCP Address: Address: [address] [place] [address]- Name: Ruthie Valdez RN Position: S RN [...] Related Persons Name: MATI MILLERA Address: home [address] [place] [address]
== END 2022-10-02 15:48 | disposition home or self-care (01) ==
LOC: HO.HUSH 15:18
PROVIDERS: PCP Internal Medicine; Visit Provider Urology
DX: N52.9 Male erectile dysfunction, unspecified (principal); N40.0 Benign prostatic hyperplasia without lower urinary tract symptoms
CPT/HCPCS: 99442

== ENCOUNTER → 2022-10-02 15:18 | Outpatient (BNVA) | payer MEDICARE, SELFPAY | PROVIDERS: PCP Internal Medicine; Visit Provider Urology ==

== ENCOUNTER 2023-04-02 11:21 | Outpatient (AMB) | payer MEDICARE, SELFPAY ==
--- NOTE | 2023-04-02 11:26 | MHC.OFFVIS ---
Intake Intake Visit Reasons: 6M pvr/Med Review Intake Note: Patient is Present for Follow Up Urology Medication: Sildenafil, Tadalafil Antibiotic Allergies: None Blood Thinners: None PVR: 13 Allergies No Known Allergies [No Known Allergies*] Allergy (Verified 04/02/23 11:27) Medication List - Last Reconciled 04/02/23 by Charlie Martinez MD atorvastatin 80 mg PO DAILY ipratropium bromide intranasal sildenafil 100 mg PO ONCE PRN 30 days tadalafil 10 mg PO DAILY 90 days HPI HPI Comments History of Present Illness Details Dewayne Lee is a very pleasant male. He is a patient of Dr Hsu. He is seen for the following urologic conditions. - lower urinary tract symptoms - erectile dysfunction PVR 15 cc Upcoming left hip replacement Will refill medications new line six-month follow-up Erectile dysfunction Response oral medications Current medication includes daily tadalafil with on demand sildenafil - Tadalafil 10mg with 100mg on demand Prior medications include on demand sildenafil up to 200 mg Lower Urinary Tract Symptoms:? Doing well with bladder emptying on alpha-fannie ?Is using sildenafil up to 200 mg as needed ?Emptying is stable ?Review in 12 months. ? Current visit is for?further evaluation of, lower urinary tract symptoms, predominate irritative symptoms.? Current treatment includes?observation, fluid restriction.? Prior treatments include?12/24 alpha fannie, terazosin - had dizziness - switched ?06/25 finasteride - minimal difference.? Prostate Symptom Score?12/24 Severe (20+), Bother 4 ?06/25 , Moderate (9-19), Bother 3 ?11/25 , Mild (0-8), Bother 2.? Symptoms include?12/24 incomplete emptying, frequency, urgency, weak stream, straining, nocturia (>2), and are progressing ?06/25 , frequency, urgency, weak stream, nocturia (>2), and are progressing ?9/19 , frequency, intermittency, weak stream, and are stable.? Results from testing include? cystoscopy ?no abnormality seen 07/25 - normal prostate, minimal trabeculation ? renal/bladder us ?Yes ? date ?12/25/2016 ? PVR ?25 ? prostate size ?50 ? Prior Prostate Score?unknown.? PSA?06/25 0.4, 12/28 0.6, 12/29 0.6 ? Prostate volume?30-50gm.? Treatment plan?continue with current medications PFSH Medical History Allergic rhinitis Aneurysm Bladder outlet obstruction BPH (benign prostatic hyperplasia) COPD (chronic obstructive pulmonary disease) Erectile dysfunction Nocturia OA (osteoarthritis) Right inguinal hernia Urinary urgency Weak urinary stream Surgical History H/O arthroscopy of knee History of foot surgery History of hernia repair History of surgery Family History Mother Cancer Social History Patient Tobacco Use Status: Former Tobacco user Review of Systems Const Denies chills and Denies fever(s) Card Reports no additional complaints and Denies syncope Resp Denies cough GI Denies abdominal pain and Denies heartburn Reports as per HPI and Denies change in libido Neuro Denies syncope Psych Denies change in libido Endo Denies change in libido Physical Exam Const General: cooperative, healthy appearing, comfortable and no acute distress Orientation/consciousness: patient oriented x3 HEENT Face and sinus: Yes normal facial exam Mouth: moist mucous membranes Neck Neck: Yes normal visual inspection, Yes full ROM and Yes trachea midline Chest Chest palpation & inspection: normal inspection of the chest Resp Effort & Inspection: normal respiratory effort, able to speak in complete sentences and no respiratory distress GI Inspection: Yes normal to inspection Back/Spine/Pelvis Cervical Spine: normal cervical lordosis Thoracic/Lumbar Spine: thoracic and lumbar spine normal to inspection Skin General skin exam: no rashes or lesions noted Neuro General: patient oriented x3, gait normal, tone normal and moves all extremities Extrem General: Yes normal to inspection and Yes capillary refill normal Office Procedures Post Void Residual Post Residual Void Post Void Residual (PVR): 13 [id number] Void Residual by ultrasound Assessment & Plan Assessment & Plan (1) Erectile dysfunction: Code(s): N52.9 - Male erectile dysfunction, unspecified (2) BPH (benign prostatic hyperplasia): Code(s): N40.0 - Benign prostatic hyperplasia without lower urinary tract symptoms Plan Six-month follow-up tele Orders: Orders AMB Post Void Residual by ultrasound Today N40.0 - Benign prostatic hyperplasia without lower urinary tract symptoms Medications: Changed From sildenafil 100 mg PO ONCE PRN 30 tabs 1RF sexual activity 30 days N52.9 - Male erectile dysfunction, unspecified To sildenafil Take 60-90 minutes prior to intended activity 100 mg PO ONCE PRN 30 tabs 1RF sexual activity 30 days N52.9 - Male erectile dysfunction, unspecified From tadalafil BIN [facility] DR33 [id number] 10 mg PO DAILY 90 tabs 1RF sexual activity 90 days N52.01 - Erectile dysfunction due to arterial insufficiency To tadalafil Take daily to assist with prostate 10 mg PO DAILY 90 tabs 1RF sexual activity 90 days N52.01 - Erectile dysfunction due to arterial insufficiency Patient Instructions: Imaging studies, laboratory and physical exam results were discussed and reviewed in detail. No major barriers to patient understanding were identified. An opportunity to ask questions regarding the treatment plan was provided. All questions were answered. The patient expressed understanding and agreement with the above treatment plan. The patient is aware they should contact our office by phone for worsening of their current condition or the appearance of new urologic symptoms. Compliance is encouraged with any medications and followup testing that is ordered. It is a privilege to participate in the urologic care of your patient. If you have any questions or concerns regarding treatment for the above conditions, or other urologic issues, please do not hesitate to contact me. The office telephone contact is [phone]. This note is constructed using voice recognition software. While every effort has been made to ensure accuracy outpatient scheduler errors may have been included. Yours sincerely, Dr Charlie Martinez MD, [facility] - Urology Providers of Expert, Compassionate Care for the Genitourinary System Coding Level of Care Code Est Pt Level 4 (99256) Diagnoses Erectile dysfunction N52.9 BPH (benign prostatic hyperplasia) N40.0 CPT Codes Post Residual Void - PVR CPT Code: 75297-Fsub Void Residual by ultrasound ([id number])
== END 2023-04-02 11:56 | disposition home or self-care (01) ==
PROVIDERS: PCP Internal Medicine; Visit Provider Urology
DX: N52.9 Male erectile dysfunction, unspecified (principal); N40.0 Benign prostatic hyperplasia without lower urinary tract symptoms
CPT/HCPCS: 99213

== ENCOUNTER → 2023-04-02 11:21 | Outpatient (BNVA) | payer MEDICARE, SELFPAY | PROVIDERS: PCP Internal Medicine; Visit Provider Urology | DX: N52.9 Male erectile dysfunction, unspecified (principal); N40.0 Benign prostatic hyperplasia without lower urinary tract symptoms | CPT/HCPCS: 51798; 99212 ==

== ENCOUNTER 2023-10-01 11:17 | Outpatient (AMB) | payer MEDICARE, SELFPAY ==
--- NOTE | 2023-10-01 11:13 | MHC.OFFVIS ---
Intake Visit Reasons: 6 month follow up/ PVR Intake Note: Patient is Present for 6M Follow Up/PVR Urology Medication: Sildenafil, Tadalafil Antibiotic Allergies: None Blood Thinners: None Patient states that both Sildenafil and Tadalafil has not been working would like to discuss medications Licensed Certified Orthotist Required: No Allergies No Known Allergies [No Known Allergies*] Allergy (Verified 10/01/23 11:15) Medication List - Last Reconciled 10/01/23 by Charlie Martinez MD atorvastatin 80 mg PO DAILY ipratropium bromide intranasal sildenafil 100 mg PO ONCE PRN 30 days tadalafil 10 mg PO DAILY 90 days HPI Comments Details: Dewayne Lee is a very pleasant male. He is a patient of Dr Hsu. He is seen for the following urologic conditions. - lower urinary tract symptoms - erectile dysfunction Telemedicine Evaluation 15 min Consultation [facility] Second hip repalcement has happened Advised for minimal activity for next 3-4 months Six-month follow-up Erectile dysfunction Response oral medications Current medication includes daily tadalafil with on demand sildenafil - Tadalafil 10mg with 100mg on demand Prior medications include on demand sildenafil up to 200 mg Lower Urinary Tract Symptoms:? Doing well with bladder emptying on alpha-fannie ?Is using sildenafil up to 200 mg as needed ?Emptying is stable ?Review in 12 months. ? Current visit is for?further evaluation of, lower urinary tract symptoms, predominate irritative symptoms.? Current treatment includes?observation, fluid restriction.? Prior treatments include?12/24 alpha fannie, terazosin - had dizziness - switched ?06/25 finasteride - minimal difference.? Prostate Symptom Score?12/24 Severe (20+), Bother 4 ?06/25 , Moderate (9-19), Bother 3 ?11/25 , Mild (0-8), Bother 2.? Symptoms include?12/24 incomplete emptying, frequency, urgency, weak stream, straining, nocturia (>2), and are progressing ?06/25 , frequency, urgency, weak stream, nocturia (>2), and are progressing ?11/26 , frequency, intermittency, weak stream, and are stable.? Results from testing include? cystoscopy ?no abnormality seen 07/25 - normal prostate, minimal trabeculation ? renal/bladder us ?Yes ? date ?12/25/2016 ? PVR ?25 ? prostate size ?50 ? Prior Prostate Score?unknown.? PSA?06/25 0.4, 12/28 0.6, 12/29 0.6 ? Prostate volume?30-50gm.? Treatment plan?continue with current medications PFSH Medical History Allergic rhinitis Aneurysm Bladder outlet obstruction BPH (benign prostatic hyperplasia) COPD (chronic obstructive pulmonary disease) Erectile dysfunction Nocturia OA (osteoarthritis) Right inguinal hernia Urinary urgency Weak urinary stream Surgical History H/O arthroscopy of knee History of foot surgery History of hernia repair History of surgery Family History Mother Cancer Social History Patient Tobacco Use Status: Former Tobacco user Review of Systems Const All systems reviewed & are unremarkable except as noted in HPI and below Reports no additional complaints Resp Reports no additional complaints GI Reports no additional complaints Reports as per HPI Musc Reports no additional complaints Physical Exam Telemedicine evaluation Appropriate responses Regular breathing rate and rhythm HEENT Head: Yes normal to inspection Ears: hearing grossly normal bilaterally Eyes General: appearance normal, both eyes and all related structures Neck Neck: Yes normal visual inspection Chest Chest palpation & inspection: normal inspection of the chest Resp Effort & Inspection: normal respiratory effort and able to speak in complete sentences Telehealth Telehealth Telehealth Platform: [facility] Location of provider rendering services: practice address Location of patient: address on file Patient Identification confirmed using: Name, : Yes Telehealth method: video Patient verbally consented to treatment: Yes Patient verbally consented to billing insurance company: Yes Patient informed of any privacy concerns related to visit: Yes Minutes spent on Phone/Video with Pt.: 15 Assessment & Plan Assessment & Plan (1) BPH (benign prostatic hyperplasia): Code(s): N40.0 - Benign prostatic hyperplasia without lower urinary tract symptoms Category: Medical (2) Erectile dysfunction: Code(s): N52.9 - Male erectile dysfunction, unspecified Category: Medical Plan Six-month follow-up office Medications: Refilled tadalafil Take daily to assist with prostate 10 mg PO DAILY 90 days 90 tabs 1RF sexual activity N52.01 - Erectile dysfunction due to arterial insufficiency Patient Instructions: Imaging studies, laboratory and physical exam results were discussed and reviewed in detail. No major barriers to patient understanding were identified. An opportunity to ask questions regarding the treatment plan was provided. All questions were answered. The patient expressed understanding and agreement with the above treatment plan. The patient is aware they should contact our office by phone for worsening of their current condition or the appearance of new urologic symptoms. Compliance is encouraged with any medications and followup testing that is ordered. It is a privilege to participate in the urologic care of your patient. If you have any questions or concerns regarding treatment for the above conditions, or other urologic issues, please do not hesitate to contact me. The office telephone contact is [phone]. This note is constructed using voice recognition software. While every effort has been made to ensure accuracy corporate event planner errors may have been included. Yours sincerely, Dr Charlie Martinez MD, [facility] - Urology Providers of Expert, Compassionate Care for the Genitourinary System Coding Level of Care Code Tele Est Pt Level 3 (29534) Diagnoses BPH (benign prostatic hyperplasia) N40.0 Erectile dysfunction N52.9
== END 2023-10-01 11:44 | disposition home or self-care (01) ==
LOC: HO.HUSH 11:17
PROVIDERS: PCP Internal Medicine; Visit Provider Urology
DX: N40.0 Benign prostatic hyperplasia without lower urinary tract symptoms (principal); N52.9 Male erectile dysfunction, unspecified
CPT/HCPCS: 99213

== ENCOUNTER → 2023-10-01 11:17 | Outpatient (BNVA) | payer MEDICARE, SELFPAY | PROVIDERS: PCP Internal Medicine; Visit Provider Urology ==